=== PATIENT | female | born 1985 | race Caucasian/White ===

== ENCOUNTER 2017-02-18 18:21 | Emergency (ER) ==
[2017-02-18 18:21] VITALS: BMI 21.0
[2017-02-18 18:26] VITALS: BP 137/80; TEMP 99.6
--- NOTE | 2017-02-18 18:39 | ED.PDOC ---
General ED Provider: Dr. MILES PAGE Chief Complaint: Tooth Problem Stated Complaint: dental pain Time Seen by Physician: 18:33 Mode of Arrival: Walk-In Information Source: Patient Exam Limitations: No limitations Primary Care Provider: ANA LAURA CLAYTON Nursing and Triage Documentation Reviewed and Agree: Yes EENT Complaint Exam - Dental/Oral Complaint/Exam Mechanism of Injury: No known trauma Symptoms Are: Still present Initial Severity: Moderate Current Severity: Moderate Character: Reports: Aching, Throbbing Aggravating: Reports: Heat, Cold, Chewing Alleviating: Reports: None Associated Signs and Symptoms: Reports: Swelling (face see photo) Cardiac Risk Factors: Reports: None Dental/Oral Surgical History: Reports: None Tooth Findings: Present: Gross decay, Gross caries Cervical Lymphadenopathy Present: No Facial Swelling Present: Yes (see photo) Bleeding Present: No Oropharynx Findings: Absent: Clots, Active bleeding Septal Hematoma: No Foreign Body Present: No Dysphagia Present: No Drooling Present: No Asymmetrical Tonsillar Swelling Present: No Uvula Midline: Yes Michelle-tonsillar Fluctuence: No Trismus Present: No Palatal Petechiae Present: No Scarlatinaform Rash Present: No Teeth Picture: 1 - decay Differential Diagnoses: Dental Caries Review of Systems - Review Of Systems Constitutional: Reports: No symptoms Eyes: Reports: No symptoms Ears, Nose, Mouth, Throat: Reports: No symptoms Respiratory: Reports: No symptoms Cardiac: Reports: No symptoms GI: Reports: No symptoms : Reports: No symptoms Musculoskeletal: Reports: No symptoms Skin: Reports: No symptoms Neurological: Reports: No symptoms Endocrine: Reports: No symptoms Hematologic/Lymphatic: Reports: No symptoms All Other Systems: Reviewed and Negative Past Medical History - Past Medical History Previously Healthy: Yes Endocrine: Reports: None Cardiovascular: Reports: None Respiratory: Reports: None Hematological: Reports: None Gastrointestinal: Reports: GERD Genitourinary: Reports: None Neuro/Psych: Reports: Anxiety, Bipolar Disorder Musculoskeletal: Reports: Arthritis, Back Pain (Kyphoscoliosis ) Cancer: Reports: None Last Menstrual Period: last week - Surgical History General Surgical History: Reports: Tubal ligation, Cholecystectomy - Family History Family History: Reports: None - Social History Smoking Status: Current every day smoker, Heavy tobacco smoker Hx Substance Use: No Alcohol Screening: None Physical Exam - Physical Exam Appearance: Well-appearing, No pain distress, Well-nourished Eyes: APARNA, EOMI, Conjunctiva clear ENT: Ears normal, Nose normal, Oropharynx normal Respiratory: Airway patent, Breath sounds clear, Breath sounds equal, Respirations nonlabored Cardiovascular: RRR, Pulses normal, No rub, No murmur GI/: Soft, Nontender, No masses, Bowel sounds normal, No Organomegaly Musculoskeletal: Normal strength, ROM intact, No edema, No calf tenderness Skin: Warm, Dry, Normal color Neurological: Sensation intact, Motor intact, Reflexes intact, Cranial nerves intact, Alert, Oriented Psychiatric: Affect appropriate, Mood appropriate Critical Care Note - Critical Care Note Total Time (mins): 0 Course - Course Vital Signs: Temp Pulse Resp BP Pulse Ox 02/18/17 18:22 99.6 F 110 H 16 137/80 97 Departure - Departure Time of Disposition: 18:39 Disposition: HOME SELF-CARE Discharge Problem: Toothache Instructions: Toothache (ED) Condition: Good Pt referred to PMD for follow-up: Yes Additional Instructions: Please call your Family Physician as soon as possible to schedule a follow-up appointment. [place] 10/325 three times a day for 5 days (15 tabs) Keflex 500mg three times a day for 15 days (30 tabs) Allergies/Adverse Reactions: Allergies codeine Adverse Reaction (Verified 08/09/16 21:26) RASH/ITCHY Latex, Natural Rubber Adverse Reaction (Verified 08/09/16 21:26) MILD IRRITATION tramadol Adverse Reaction (Verified 08/09/16 21:26) SEIZURES Home Medications: Ambulatory Orders Diphenhydramine HCl [Benadryl] 50 mg PO ONCE PRN 05/26/16 Diazepam [Valium] 10 mg PO TID #90 07/30/16 Gabapentin [Neurontin] 800 mg PO TID #90 07/30/16 Risperdal 1 mg PO BEDTIME #30 07/30/16 Venlafaxine HCl [Effexor Xr] 75 mg PO BID #60 07/30/16 Hydrocodone/Acetaminophen [[place] 5-325 Tablet] 1 tab PO Q6HR PRN #12 tablet Lamotrigine [Lamictal] 100 mg PO BEDTIME #30 12/17/16
== END 2017-02-18 18:50 | disposition home or self-care (01) ==
LOC: ED 18:21
DX: K08.89 Other specified disorders of teeth and supporting structures (principal); K02.7 Dental root caries; F17.210 Nicotine dependence, cigarettes, uncomplicated; Z79.899 Other long term (current) drug therapy
CPT/HCPCS: 99282

== ENCOUNTER 2017-04-12 14:47 | Emergency (ER) ==
[2017-04-12 14:47] VITALS: BMI 21.0
[2017-04-12 14:53] VITALS: BP 98/61; TEMP 98.1
[2017-04-12] MEDS ORDERED: SOLU-MEDROL 125 MG IM STA (15:08)
[2017-04-12] MEDS ORDERED: BENADRYL IM STA (15:08)
[2017-04-12] MEDS ORDERED: STADOL IM STA (15:08)
--- NOTE | 2017-04-12 15:09 | ED.PDOC ---
General ED Provider: Dr. FITO MINA JR Chief Complaint: Fall Stated Complaint: SLIPPED IN SHOWER AND HIT BACK ON CORNER OF SINK. [ End ] 98.1 104 20 96% 98/61 05/30. FALL, GOES TO PAIN MANAGEMENT. LEFT BACK THORACIC PARASPINOUS Time Seen by Physician: 15:10 Mode of Arrival: Walk-In Information Source: Patient Exam Limitations: No limitations Primary Care Provider: ANA LAURA CLAYTON Nursing and Triage Documentation Reviewed and Agree: No Review of Systems - Review Of Systems Constitutional: Reports: No symptoms Eyes: Reports: No symptoms Ears, Nose, Mouth, Throat: Reports: No symptoms Respiratory: Reports: No symptoms Cardiac: Reports: No symptoms GI: Reports: No symptoms : Reports: No symptoms Musculoskeletal: Reports: Back pain (LEFT FLANK ABTRASIONS TENDER BY HISTORY DEEP BRUISE PER PATIENT- TENDERNESS MOST OVER LEFT POSTLAT 10TH RIB- SIMPLE CONTUSION NO RIB TENDERNESS TO DISTRACTION) Skin: Reports: Lesions Neurological: Reports: No symptoms Endocrine: Reports: No symptoms Hematologic/Lymphatic: Reports: No symptoms All Other Systems: Other Past Medical History - Past Medical History Previously Healthy: Yes Endocrine: Reports: None Cardiovascular: Reports: None Respiratory: Reports: None Hematological: Reports: None Gastrointestinal: Reports: GERD Genitourinary: Reports: None Neuro/Psych: Reports: Anxiety, Bipolar Disorder Musculoskeletal: Reports: Arthritis, Back Pain (Kyphoscoliosis ) Cancer: Reports: None Last Menstrual Period: 1 WEEK AGO - Surgical History General Surgical History: Reports: Tubal ligation, Cholecystectomy - Family History Family History: Reports: None - Social History Smoking Status: Current every day smoker, Heavy tobacco smoker Hx Substance Use: No Alcohol Screening: None Physical Exam - Physical Exam Appearance: Well-appearing, Thin Pain Distress: Moderate Eyes: APARNA, EOMI, Conjunctiva clear ENT: Ears normal, Nose normal, Oropharynx normal Neck: Supple Respiratory: Airway patent, Breath sounds clear, Breath sounds equal, Respirations nonlabored Cardiovascular: RRR, Pulses normal, No rub, No murmur GI/: Soft, Nontender, No masses, Bowel sounds normal, No Organomegaly Musculoskeletal: Normal strength, ROM intact, No edema, No calf tenderness Skin: Warm, Dry, Normal color (ERYTHEMA CONSISTENT WITH HISTORY NO EDEMA NO TENDERNESS NO BONY TENDERNESS) Neurological: Sensation intact, Motor intact, Reflexes intact, Cranial nerves intact, Alert, Oriented Psychiatric: Affect appropriate, Mood appropriate Critical Care Note - Critical Care Note Total Time (mins): 0 Course - Course Orders, Labs, Meds: Lab Review 04/12/17 16:30 Urine Color Yellow Urine Clarity Clear Urine pH 6.0 Ur Specific [place] <=1.005 Urine Protein Negative Urine Glucose (UA) Negative Urine Ketones Negative Urine Blood Negative Urine Nitrite Negative Urine Bilirubin Negative Urine Urobilinogen 0.2 Ur Leukocyte Esterase Negative Orders Category Date Time Status UA [URINALYSIS C & S IF INDICATED] Stat LAB 04/12/17 16:30 Completed Butorphanol Tartrate [Stadol] MEDS 04/12/17 15:08 Discontinued 2 mg IM ONCE STA Diphenhydramine Inj [Benadryl] MEDS 04/12/17 15:08 Discontinued 25 mg IM ONCE STA Methylprednisolone Sod Succ/Pf [Solu-Medrol 125 mg] MEDS 04/12/17 15:08 Discontinued 125 mg IM ONCE STA Medications Discontinued Medications Generic Name Dose Route Start Last Admin Trade Name Freq PRN Reason Stop Dose Admin Butorphanol Tartrate 2 mg 04/12/17 15:08 04/12/17 15:48 Stadol IM 04/12/17 15:09 2 mg ONCE STA Administration Diphenhydramine HCl 25 mg 04/12/17 15:08 04/12/17 15:46 Benadryl IM 04/12/17 15:09 25 mg ONCE STA Administration Methylprednisolone Sodium Succinate 125 mg 04/12/17 15:08 04/12/17 15:44 Solu-Medrol 125 Mg IM 04/12/17 15:09 125 mg ONCE STA Administration Vital Signs: Temp Pulse Resp BP Pulse Ox 04/12/17 14:47 98.1 F 104 H 20 98/61 96 Departure - Departure Time of Disposition: 17:03 Disposition: HOME SELF-CARE Discharge Problem: Falls Contusion Qualifiers: Encounter type: initial encounter Contusion area: thoracic wall Contusion of thoracic wall detail: back wall of thorax Laterality: left Qualifier Code: ( S20.222A) Contusion of left back wall of thorax, initial encounter Instructions: Contusion in Adults (ED) Condition: Good Pt referred to PMD for follow-up: Yes Additional Instructions: ice 20 minutes three times a day return if blood in urine(urine is normal without blood in ER) light exercise may use Tylenol for pain Benadryl for itching return if new symptoms may use [place] if OK with PMD Prescriptions: Hydrocodone Bit/Acetaminophen [[place] 5-325] 1 - 2 tab PO Q6HR PRN #12 tablet PRN Reason: pain Allergies/Adverse Reactions: Allergies codeine Adverse Reaction (Verified 04/12/17 14:54) RASH/ITCHY hydrocodone Adverse Reaction (Verified 04/12/17 14:54) Latex, Natural Rubber Adverse Reaction (Verified 04/12/17 14:54) MILD IRRITATION tramadol Adverse Reaction (Verified 04/12/17 14:54) SEIZURES Home Medications: Ambulatory Orders Diphenhydramine HCl [Benadryl] 50 mg PO ONCE PRN 05/26/16 Hydrocodone Bit/Acetaminophen [[place] 5-325] 1 - 2 tab PO Q6HR PRN #12 tablet
[2017-04-12 16:42] LABS: BILIRUBIN,URINE Negative (NEGATIVE); KETONES,URINE Negative (NEGATIVE); LEUKOCYTE ESTERASE ,URINE Negative (NEGATIVE); NITRITE,URINE Negative (NEGATIVE); PROTEIN,URINE Negative (NEGATIVE); URINE, BLOOD Negative (NEGATIVE)
[2017-04-12 16:46] LABS: ADD URINE MICROSCOPIC NO
[2017-04-12] MEDS ORDERED: NORCO 5-325 PO STA (17:05)
== END 2017-04-12 17:44 | disposition home or self-care (01) ==
LOC: ED 14:47
DX: S20.222A Contusion of left back wall of thorax, initial encounter (principal); W19.XXXA Unspecified fall, initial encounter; F17.210 Nicotine dependence, cigarettes, uncomplicated
CPT/HCPCS: 81001; 96372; 99283

== ENCOUNTER 2017-10-04 21:25 | Emergency (ER) ==
[2017-10-04 21:36] VITALS: BP 130/81; TEMP 98.6; BMI 19.7
[2017-10-04] MEDS ORDERED: AUGMENTIN 500-125 MG TAB PO STA (21:45)
[2017-10-04] MEDS ORDERED: PERCOCET 5-325 PO STA (21:45)
--- NOTE | 2017-10-04 21:48 | ED.PDOC ---
General ED Provider: Dr. MATTHIEU HEALY Chief Complaint: Tooth Problem Stated Complaint: Been hurting in the right lower teeth, it has caries, gum swollen. Time Seen by Physician: 21:46 Mode of Arrival: Walk-In Information Source: Patient Primary Care Provider: ANA LAURA CLAYTON Nursing and Triage Documentation Reviewed and Agree: Yes Reviewed sepsis parameters & appropriate labs ordered?: Yes System Inflammatory Response Syndrome: Not Applicable Sepsis Protocol: For patient's 13 years and over: Temp is 96.8 and below OR 101 and greater Pulse >90 BPM Resp >20/minute Acutely Altered Mental Status Are patient's symptoms suggestive of a new infection, such as: -Pneumonia -Skin, Soft Tissue -Endocarditis -UTI -Bone, Joint Infection -Implantable Device -Acute Abdominal Infection -Wound Infection -Meningitis -Blood Stream Catheter Infection -Unknown EENT Complaint Exam - Dental/Oral Complaint/Exam Mechanism of Injury: No known trauma Symptoms Are: Still present Timing: Constant Initial Severity: Moderate Current Severity: Moderate Character: Reports: Aching Aggravating: Reports: None Alleviating: Reports: None Associated Signs and Symptoms: Reports: Swelling, Foul odor, Foul taste in mouth. Denies: Discharge, Fever Related History: Reports: Similar episode Cardiac Risk Factors: Reports: None Dental/Oral Surgical History: Reports: None Tooth Findings: Present: Gross decay, Gross caries, Cellulitis Cervical Lymphadenopathy Present: Yes Facial Swelling Present: No Bleeding Present: No Septal Hematoma: No Foreign Body Present: No Dysphagia Present: No Drooling Present: No Asymmetrical Tonsillar Swelling Present: No Uvula Midline: No Michelle-tonsillar Fluctuence: No Trismus Present: No Palatal Petechiae Present: No Scarlatinaform Rash Present: No Teeth Picture: 1 - caries, swollen gums Differential Diagnoses: Dental Abcess, Dental Caries Review of Systems - Review Of Systems Constitutional: Reports: No symptoms Eyes: Reports: No symptoms Ears, Nose, Mouth, Throat: Reports: Mouth pain Respiratory: Reports: No symptoms Cardiac: Reports: No symptoms GI: Reports: No symptoms : Reports: No symptoms Musculoskeletal: Reports: No symptoms Skin: Reports: No symptoms Neurological: Reports: No symptoms Endocrine: Reports: No symptoms Hematologic/Lymphatic: Reports: No symptoms All Other Systems: Reviewed and Negative Past Medical History - Past Medical History Previously Healthy: Yes Endocrine: Reports: None Cardiovascular: Reports: None Respiratory: Reports: None Hematological: Reports: None Gastrointestinal: Reports: GERD Genitourinary: Reports: None Neuro/Psych: Reports: Anxiety, Bipolar Disorder Musculoskeletal: Reports: Arthritis, Back Pain (Kyphoscoliosis ) Cancer: Reports: None Last Menstrual Period: 1 week ago - Surgical History General Surgical History: Reports: Tubal ligation, Cholecystectomy - Family History Family History: Reports: None - Social History Smoking Status: Current every day smoker, Heavy tobacco smoker Smoking Cessation Counseling Time: > 10 min Hx Substance Use: No Alcohol Screening: None - Immunizations Tetanus Shot up to Date: No (unsure) Physical Exam - Physical Exam Appearance: Well-appearing, No pain distress, Well-nourished Eyes: APARNA, EOMI, Conjunctiva clear ENT: Ears normal, Nose normal, Oropharynx normal Respiratory: Airway patent, Breath sounds clear, Breath sounds equal, Respirations nonlabored Cardiovascular: RRR, Pulses normal, No rub, No murmur GI/: Soft, Nontender, No masses, Bowel sounds normal, No Organomegaly Musculoskeletal: Normal strength, ROM intact, No edema, No calf tenderness Skin: Warm, Dry, Normal color Neurological: Sensation intact, Motor intact, Reflexes intact, Cranial nerves intact, Alert, Oriented Psychiatric: Affect appropriate, Mood appropriate Critical Care Note - Critical Care Note Total Time (mins): 10 Course - Course Orders, Labs, Meds: Orders Category Date Time Status Amoxicillin/Potassium Clav [Augmentin 500-125 mg Tab] MEDS 10/04/17 21:45 Stat 1 tab PO ONCE STA Oxycodone-Acetaminophen 5-325 [Percocet 5-325] MEDS 10/04/17 21:45 Stat 1 tab PO ONCE STA Vital Signs: Temp Pulse Resp BP Pulse Ox 10/04/17 21:27 98.6 F 104 H 20 130/81 96 Departure - Departure Time of Disposition: 21:49 Disposition: HOME SELF-CARE Discharge Problem: Toothache Instructions: Dental Caries (GEN) Condition: Good Pt referred to PMD for follow-up: Yes IPMP verified?: No Additional Instructions: dental hygiene f/u with Dentist Prescriptions: Amoxicillin/Potassium Clav [Augmentin 500-125 mg Tab] 1 tab PO Q12HR #20 tablet Allergies/Adverse Reactions: Allergies codeine Adverse Reaction (Verified 04/12/17 14:54) RASH/ITCHY hydrocodone Adverse Reaction (Verified 10/04/17 21:39) Itching QUESTIONED PT ABOUT HAVING HYDROCODONE LISTED AN ALLERGY AND PT TAKES NORCO 5-325MG FROM PAIN MANAGEMENT. PT. SAYS SHE TAKES BENADRYL BEFORE TAKING THE NORCO AND IS WANTING DRDaniel TO CHANGE PAIN MED. wm Latex, Natural Rubber Adverse Reaction (Verified 04/12/17 14:54) MILD IRRITATION tramadol Adverse Reaction (Verified 04/12/17 14:54) SEIZURES Home Medications: Ambulatory Orders Diphenhydramine HCl [Benadryl] 50 mg PO ONCE PRN 05/26/16 Amoxicillin/Potassium Clav [Augmentin 500-125 mg Tab] 1 tab PO Q12HR #20 tablet 10/04/17 Hydrocodone Bit/Acetaminophen [[place] 5-325] 1 - 2 tab PO BID 10/04/17 Disposition Discussed With: Patient, Family
== END 2017-10-04 22:08 | disposition home or self-care (01) ==
LOC: ED 21:25
DX: K08.89 Other specified disorders of teeth and supporting structures (principal); K02.7 Dental root caries
CPT/HCPCS: 99282

== ENCOUNTER 2017-12-04 07:20 | Outpatient (CLI) | payer OTHER | END 2017-12-04 07:21 | disposition short-term general hospital (02) | LOC: AMBL 07:20 | PROVIDERS: ATTEND Emergency Medicine | DX: T22.00XA Burn of unspecified degree of shoulder and upper limb, except wrist and hand, unspecified site, initial encounter (principal); T20.00XA Burn of unspecified degree of head, face, and neck, unspecified site, initial encounter; T20.02XA Burn of unspecified degree of lip(s), initial encounter; T28.0XXA Burn of mouth and pharynx, initial encounter; T79.9XXA Unspecified early complication of trauma, initial encounter; R40.20 Unspecified coma; X08.8XXA Exposure to other specified smoke, fire and flames, initial encounter ==

== ENCOUNTER 2018-01-15 15:40 | Emergency (ER) | payer OTHER ==
[2018-01-15 15:45] VITALS: BP 124/84; TEMP 97.8; BMI 20.2
[2018-01-15] MEDS ORDERED: NORCO 5-325 PO STA (18:36)
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
== END 2018-01-15 19:10 | disposition home or self-care (01) ==
LOC: ED 15:40
DX: H10.9 Unspecified conjunctivitis (principal); F17.210 Nicotine dependence, cigarettes, uncomplicated
CPT/HCPCS: 87070; 99283

== ENCOUNTER 2018-01-31 18:08 | Emergency (ER) ==
[2018-01-31 18:25] VITALS: BP 116/88; TEMP 99.2; BMI 19.5
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
== END 2018-01-31 20:35 | disposition home or self-care (01) ==
LOC: ED 18:08
DX: Z76.0 Encounter for issue of repeat prescription (principal); T22.00XD Burn of unspecified degree of shoulder and upper limb, except wrist and hand, unspecified site, subsequent encounter; X08.8XXD Exposure to other specified smoke, fire and flames, subsequent encounter
CPT/HCPCS: 99283

== ENCOUNTER 2018-02-15 18:06 | Inpatient (IN) ==
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
[2018-02-15] MEDS ORDERED: VANCOMYCIN 1 GM in SODIUM CHLORIDE 250 ML IV STA (18:34)
[2018-02-15] MEDS ORDERED: ROCEPHIN 1 GM in SODIUM CHLORIDE 50 ML IV STA (18:34)
[2018-02-15] MEDS ORDERED: NORCO 10-325 PO PRN (18:35)
[2018-02-15] MEDS ORDERED: OXYCODONE PO PRN (18:38)
[2018-02-15] MEDS ORDERED: ROCEPHIN ONE (18:49)
[2018-02-15] MEDS: SODIUM CHLORIDE 1,000 ML IV SCH (21:40)
[2018-02-15 21:47] VITALS: BMI 19.9
[2018-02-15] MEDS ORDERED: LAMOTRIGINE 100 MG PO SCH (23:45)
[2018-02-15] MEDS ORDERED: NON-FORMULARY MEDICATION (Gabapentin [Neurontin] 800 MG) PO SCH (23:45)
[2018-02-15] MEDS ORDERED: RISPERDAL 1 MG PO SCH (23:45)
[2018-02-15] MEDS ORDERED: NON-FORMULARY MEDICATION (Diazepam [Valium] 10 MG) PO SCH (23:49)
[2018-02-16] MEDS ORDERED: VALIUM ONE (00:45)
[2018-02-16] MEDS ORDERED: NEURONTIN ONE ×2 (00:45)
[2018-02-16] MEDS ORDERED: RISPERDAL ONE (00:46)
[2018-02-16] MEDS ORDERED: NEO-POLYCIN OPTH OINT OP SCH (01:00)
[2018-02-16] MEDS: BENADRYL PO PRN ×2 (01:05→19:03)
[2018-02-16] MEDS: OXYCODONE PO PRN ×5 (01:09→23:48)
[2018-02-16] MEDS ORDERED: BACITRACIN TP SCH (01:40)
[2018-02-16] MEDS: EFFEXOR XR PO SCH ×3 (01:57→20:43)
[2018-02-16] MEDS ORDERED: VANCOMYCIN 1 GM in SODIUM CHLORIDE 250 ML IV SCH (09:00)
[2018-02-16] MEDS: VANCOMYCIN 1 GM in SODIUM CHLORIDE 250 ML IV SCH ×2 (09:48→20:43)
[2018-02-16] MEDS: NEURONTIN PO SCH ×6 (09:48→20:45)
[2018-02-16] MEDS: VALIUM PO SCH ×3 (09:49→20:46)
[2018-02-16] MEDS: ROCEPHIN 1 GM in SODIUM CHLORIDE 50 ML IV SCH (13:05)
[2018-02-16] MEDS: SODIUM CHLORIDE 1,000 ML IV SCH (19:03)
[2018-02-16] MEDS ORDERED: PERCOCET 10-325 PO STA (19:16)
[2018-02-16] MEDS: BACITRACIN TP SCH (20:42)
[2018-02-16] MEDS: LAMICTAL PO SCH (20:43)
[2018-02-16] MEDS: RISPERDAL PO SCH (20:45)
[2018-02-17] MEDS: OXYCODONE PO PRN ×4 (04:53→18:13)
[2018-02-17] MEDS: EFFEXOR XR PO SCH ×2 (08:47→21:00)
[2018-02-17] MEDS: VANCOMYCIN 1 GM in SODIUM CHLORIDE 250 ML IV SCH ×2 (08:47→20:59)
[2018-02-17] MEDS: VALIUM PO SCH ×3 (08:47→21:00)
[2018-02-17] MEDS: NEURONTIN PO SCH ×6 (08:47→21:01)
[2018-02-17] MEDS: BENADRYL PO PRN (08:54)
[2018-02-17] MEDS: ROCEPHIN 1 GM in SODIUM CHLORIDE 50 ML IV SCH (10:18)
[2018-02-17] MEDS: LAMICTAL PO SCH (20:59)
[2018-02-17] MEDS: BACITRACIN TP SCH (20:59)
[2018-02-17] MEDS ORDERED: BACITRACIN TP SCH (21:00)
[2018-02-17] MEDS: RISPERDAL PO SCH (21:00)
[2018-02-17] MEDS: SODIUM CHLORIDE 1,000 ML IV SCH (21:00)
[2018-02-18] MEDS: OXYCODONE PO PRN ×7 (01:08→21:12)
[2018-02-18] MEDS: EFFEXOR XR PO SCH ×2 (08:50→20:45)
[2018-02-18] MEDS: NEURONTIN PO SCH ×6 (08:51→20:44)
[2018-02-18] MEDS: VALIUM PO SCH ×3 (08:52→20:43)
[2018-02-18] MEDS: BENADRYL PO PRN ×2 (09:03→17:38)
[2018-02-18] MEDS: ROCEPHIN 1 GM in SODIUM CHLORIDE 50 ML IV SCH (09:16)
[2018-02-18] MEDS: VANCOMYCIN 1 GM in SODIUM CHLORIDE 250 ML IV SCH ×2 (09:39→20:46)
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
[2018-02-18] MEDS: RISPERDAL PO SCH (20:45)
[2018-02-18] MEDS: LAMICTAL PO SCH (20:46)
[2018-02-18] MEDS: BACITRACIN TP SCH (20:46)
[2018-02-18] MEDS: SODIUM CHLORIDE 1,000 ML IV SCH (22:41)
[2018-02-19] MEDS: OXYCODONE PO PRN ×5 (03:31→20:33)
[2018-02-19] MEDS: EFFEXOR XR PO SCH ×2 (08:12→20:34)
[2018-02-19] MEDS: NEURONTIN PO SCH ×6 (08:12→20:32)
[2018-02-19] MEDS: VALIUM PO SCH ×3 (08:12→20:34)
[2018-02-19] MEDS: ROCEPHIN 1 GM in SODIUM CHLORIDE 50 ML IV SCH (08:13)
[2018-02-19] MEDS: VANCOMYCIN 1 GM in SODIUM CHLORIDE 250 ML IV SCH ×2 (09:01→21:55)
[2018-02-19] MEDS: BENADRYL PO PRN (10:25)
[2018-02-19] MEDS: SODIUM CHLORIDE 1,000 ML IV SCH ×2 (15:21→15:22)
[2018-02-19] MEDS: LAMICTAL PO SCH (20:32)
[2018-02-19] MEDS: RISPERDAL PO SCH (20:35)
[2018-02-19] MEDS: BACITRACIN TP SCH (20:35)
[2018-02-20] MEDS: OXYCODONE PO PRN ×5 (00:38→16:53)
[2018-02-20] MEDS: BENADRYL PO PRN (07:17)
[2018-02-20] MEDS: EFFEXOR XR PO SCH (08:45)
[2018-02-20] MEDS: VANCOMYCIN 1 GM in SODIUM CHLORIDE 250 ML IV SCH (08:45)
[2018-02-20] MEDS: NEURONTIN PO SCH ×4 (08:46→16:08)
[2018-02-20] MEDS: VALIUM PO SCH ×2 (08:46→16:08)
[2018-02-20] MEDS: ROCEPHIN 1 GM in SODIUM CHLORIDE 50 ML IV SCH (10:58)
[2018-02-20] MEDS ORDERED: OXYCODONE PO STA (15:14)
[2018-02-20 17:48] VITALS: BP 104/64; TEMP 98.1
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
--- NOTE | 2018-02-21 16:16 | RS.OTQKDC ---
OT Discharge Date of Discharge: 02/20/18 Number of Visits: 2 Reason for Discharge: Pt discharged to home.
== END 2018-02-20 19:35 | disposition home or self-care (01) | DRG 603 ==
LOC: ED 18:06 → MEDSURG B 18:36
PROVIDERS: ADMIT Emergency Medicine; ATTEND Emergency Medicine
DX: L03.114 Cellulitis of left upper limb (principal); L03.113 Cellulitis of right upper limb; T22.09 Burn of unspecified degree of multiple sites of shoulder and upper limb, except wrist and hand; T20.0 Burn of unspecified degree of head, face, and neck; T20.05 Burn of unspecified degree of scalp [any part]; X00 Exposure to uncontrolled fire in building or structure; B95.62 Methicillin resistant Staphylococcus aureus infection as the cause of diseases classified elsewhere; G40.909 Epilepsy, unspecified, not intractable, without status epilepticus; G43.909 Migraine, unspecified, not intractable, without status migrainosus; I10 Essential (primary) hypertension; K21.9 Gastro-esophageal reflux disease without esophagitis; M41.9 Scoliosis, unspecified; M54.30 Sciatica, unspecified side; M19.90 Unspecified osteoarthritis, unspecified site; F43.10 Post-traumatic stress disorder, unspecified; F31.9 Bipolar disorder, unspecified; F41.9 Anxiety disorder, unspecified; F32.9 Major depressive disorder, single episode, unspecified; Z16.11 Resistance to penicillins; Z79.899 Other long term (current) drug therapy
CPT/HCPCS: 36415; 80053; 80202; 85025; 87040; 87070; 87186; 96365; 99284

== ENCOUNTER 2018-03-13 16:19 | Emergency (ER) ==
[2018-03-13 16:29] VITALS: BP 120/87; TEMP 98.7; BMI 20.2
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
[2018-03-13] MEDS ORDERED: OXYCONTIN PO STA (16:54)
== END 2018-03-13 17:17 | disposition home or self-care (01) ==
LOC: ED 16:19
DX: M25.521 Pain in right elbow (principal)
CPT/HCPCS: 99282

== ENCOUNTER 2018-03-26 17:39 | Emergency (ER) ==
[2018-03-26 17:44] VITALS: BP 115/71; TEMP 97.9; BMI 20.1
[2018-03-26] MEDS ORDERED: ZOFRAN 4 MG/2 ML IM STA (19:43)
[2018-03-26] MEDS ORDERED: BACTRIM DS 800/160 MG PO STA (19:43)
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
[2018-03-26] MEDS ORDERED: NORCO 7.5-325 PO STA (20:11)
== END 2018-03-26 20:28 | disposition home or self-care (01) ==
LOC: ED 17:39
DX: L03.113 Cellulitis of right upper limb (principal); T22.021A Burn of unspecified degree of right elbow, initial encounter
CPT/HCPCS: 96372; 99283; 99284

== ENCOUNTER 2018-05-17 17:48 | Emergency (ER) ==
[2018-05-17 17:53] VITALS: BP 109/72; TEMP 97.9; BMI 21.3
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
[2018-05-17] MEDS ORDERED: PERCOCET 7.5-325 PO STA (18:48)
[2018-05-17] MEDS ORDERED: NORCO 7.5-325 PO STA (18:51)
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
[2018-05-17] MEDS ORDERED: DILAUDID 0.5 MG/0.5 ML SYRINGE IM STA (20:10)
== END 2018-05-17 20:28 | disposition home or self-care (01) ==
LOC: ED 17:48
DX: K08.89 Other specified disorders of teeth and supporting structures (principal); K02.7 Dental root caries; S02.5XXA Fracture of tooth (traumatic), initial encounter for closed fracture; F17.210 Nicotine dependence, cigarettes, uncomplicated
CPT/HCPCS: 96372; 99283

== ENCOUNTER 2018-07-11 23:00 | Emergency (ER) ==
[2018-07-11 23:16] VITALS: BP 103/73; TEMP 96.9; BMI 22.2
[2018-07-11] MEDS ORDERED: DILAUDID 1 MG/ML SYRINGE IM STA (23:37)
[2018-07-11] MEDS ORDERED: PHENERGAN 25 MG/ML VIAL IM STA (23:37)
--- NOTE | 2018-07-12 01:00 | CT ---
EXAM: CT scan brain without contrast HISTORY: Dizziness COMPARISON: CT scan brain 09/07/2016 FINDINGS: Contiguous axial images obtained from the skull base to the convexities without contrast u tilizing 5-mm collimation. Sagittal and coronal reconstructions were imaged and reviewed.. The vent ricles and CSF spaces are within normal limits. There are no acute intracranial findings. The visua lized paranasal sinuses and mastoid air cells are clear. IMPRESSION: No acute intracranial findings.
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
== END 2018-07-12 01:20 | disposition home or self-care (01) ==
LOC: ED 23:00
DX: M79.602 Pain in left arm (principal); M79.601 Pain in right arm; T22.00XS Burn of unspecified degree of shoulder and upper limb, except wrist and hand, unspecified site, sequela; R94.5 Abnormal results of liver function studies; F17.210 Nicotine dependence, cigarettes, uncomplicated
CPT/HCPCS: 36415; 80053; 82550; 84484; 84703; 85025; 93005; 93010; 96372; 99283

== ENCOUNTER 2018-07-13 16:22 | Emergency (ER) ==
[2018-07-13 16:30] VITALS: BP 118/64; TEMP 98.1; BMI 23.1
--- NOTE | 2018-07-13 17:23 | ED.PDOC ---
General ED Provider: Dr. MILES PAGE Chief Complaint: Headache Stated Complaint: chronic headache Time Seen by Physician: 16:30 (pedro present all times ) Mode of Arrival: Walk-In Information Source: Patient Exam Limitations: No limitations Primary Care Provider: LY FELICIANO Nursing and Triage Documentation Reviewed and Agree: Yes Does patient meet sepsis criteria?: No System Inflammatory Response Syndrome: Not Applicable Sepsis Protocol: For patient's 13 years and over: Temp is 96.8 and below OR 101 and greater Pulse >90 BPM Resp >20/minute Acutely Altered Mental Status Are patient's symptoms suggestive of a new infection, such as: -Pneumonia -Skin, Soft Tissue -Endocarditis -UTI -Bone, Joint Infection -Implantable Device -Acute Abdominal Infection -Wound Infection -Meningitis -Blood Stream Catheter Infection -Unknown Neurological Complaint Exam - Headache Complaint/Exam Onset: Gradual Duration: 1630 Symptoms Are: Still present Timing: Intermittent Episodes Lasting: Hours Worst Headache Ever: No Initial Severity: Moderate Current Severity: Moderate Location: Diffuse Character: Reports: Dull Aggravating: Reports: None Alleviating: Reports: None Associated Signs and Symptoms: Denies: Dizziness, Seizure, Nausea, Vomiting, Sinus pressure, Fever, Neck pain, Neck stiffness, Decreased LOC, Visual changes Related History: Reports: Similar episode Related Surgical History: Reports: None SAH Risk Factors: Reports: None SDH Risk Factors: Reports: None Temporal Arteritis Risk Factors: Reports: Female, Normal Head CT Within Last 12 Months: No Fundoscopic Exam: Present: Normal Findings Papilledema Present: No Temporal Artery Tenderness: Present: None Sinus Tenderness: Present: None TMJ Tenderness: Present: None Glascow Coma Scale (see protocol): 15 Meningeal Signs Positive: No ROM Limited In: No Limitiations Focal Weakness: Present: None Focal Sensory Loss: Present: None Gait: Normal Nystagmus Present: No Gag Reflex Present: Yes [id number]: Normal Findings Romberg Test Positive: No Babinski Sign: Negative Right, Negative Left Differential Diagnoses: Migraine Review of Systems - Review Of Systems Constitutional: Reports: No symptoms Eyes: Reports: No symptoms Ears, Nose, Mouth, Throat: Reports: No symptoms Respiratory: Reports: No symptoms Cardiac: Reports: No symptoms GI: Reports: No symptoms : Reports: No symptoms Musculoskeletal: Reports: No symptoms Skin: Reports: No symptoms Neurological: Reports: No symptoms Endocrine: Reports: No symptoms Hematologic/Lymphatic: Reports: No symptoms All Other Systems: Reviewed and Negative Past Medical History - Past Medical History Previously Healthy: Yes Endocrine: Reports: None Cardiovascular: Reports: None Respiratory: Reports: None Hematological: Reports: None Gastrointestinal: Reports: GERD Genitourinary: Reports: None Neuro/Psych: Reports: Anxiety, Bipolar Disorder Musculoskeletal: Reports: Arthritis, Back Pain (Kyphoscoliosis ) Cancer: Reports: None Last Menstrual Period: not sure - Surgical History General Surgical History: Reports: Tubal ligation, Cholecystectomy - Family History Family History: Reports: None - Social History Smoking Status: Current every day smoker, Light tobacco smoker Hx Substance Use: No Alcohol Screening: None Physical Exam - Physical Exam Appearance: Well-appearing, No pain distress, Well-nourished Eyes: APARNA, EOMI, Conjunctiva clear ENT: Ears normal, Nose normal, Oropharynx normal Respiratory: Airway patent, Breath sounds clear, Breath sounds equal, Respirations nonlabored Cardiovascular: RRR, Pulses normal, No rub, No murmur GI/: Soft, Nontender, No masses, Bowel sounds normal, No Organomegaly Musculoskeletal: Normal strength, ROM intact, No edema, No calf tenderness Skin: Warm, Dry, Normal color Neurological: Sensation intact, Motor intact, Reflexes intact, Cranial nerves intact, Alert, Oriented Psychiatric: Affect appropriate, Mood appropriate Critical Care Note - Critical Care Note Total Time (mins): 0 Course - Course Vital Signs: Temp Pulse Resp BP Pulse Ox 07/13/18 16:23 98.1 F 87 20 118/64 98 Departure - Departure Time of Disposition: 17:23 Disposition: HOME SELF-CARE Discharge Problem: Headache Instructions: Acute Headache (ED) Condition: Good Pt referred to PMD for follow-up: Yes IPMP verified?: No Additional Instructions: Please call your Family Physician as soon as possible to schedule a follow-up appointment. Allergies/Adverse Reactions: Allergies tramadol Adverse Reaction (Verified 07/13/18 16:32) seizures Home Medications: Ambulatory Orders Bacitracin 1 applic TP BEDTIME 02/16/18 Ondansetron HCl [Zofran] 4 mg PO PRN 04/19/18 Oxycodone HCl 5 mg PO TID 04/19/18 Diphenhydramine HCl [Benadryl] 50 mg PO DIRECTED PRN 05/17/18
== END 2018-07-13 17:33 | disposition home or self-care (01) ==
LOC: ED 16:22
DX: R51 Headache (principal); F17.210 Nicotine dependence, cigarettes, uncomplicated
CPT/HCPCS: 99282

== ENCOUNTER 2018-08-06 23:42 | Emergency (ER) ==
[2018-08-06 23:55] VITALS: BP 123/84; TEMP 99.3; BMI 22.8
[2018-08-07] MEDS ORDERED: TORADOL IM STA (00:02)
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
== END 2018-08-07 00:50 | disposition home or self-care (01) ==
LOC: ED 23:42
DX: G62.9 Polyneuropathy, unspecified (principal); T22.00XS Burn of unspecified degree of shoulder and upper limb, except wrist and hand, unspecified site, sequela; F17.210 Nicotine dependence, cigarettes, uncomplicated
CPT/HCPCS: 99282

== ENCOUNTER 2018-08-07 14:43 | Emergency (ER) ==
[2018-08-07 14:54] VITALS: BP 112/78; TEMP 100; BMI 22.6
[2018-08-07] MEDS ORDERED: DILAUDID 1 MG/ML SYRINGE IM STA (15:01)
--- NOTE | 2018-08-07 15:04 | ED.PDOC ---
General ED Provider: Dr. GARY CAPUTO-ER Chief Complaint: Extremity Pain/Injury Stated Complaint: my neuropathy is acting up Time Seen by Physician: 15:02 Mode of Arrival: Walk-In Information Source: Patient Exam Limitations: No limitations Primary Care Provider: LY FELICIANO Nursing and Triage Documentation Reviewed and Agree: Yes Does patient meet sepsis criteria?: No System Inflammatory Response Syndrome: Not Applicable Sepsis Protocol: For patient's 13 years and over: Temp is 96.8 and below OR 101 and greater Pulse >90 BPM Resp >20/minute Acutely Altered Mental Status Are patient's symptoms suggestive of a new infection, such as: -Pneumonia -Skin, Soft Tissue -Endocarditis -UTI -Bone, Joint Infection -Implantable Device -Acute Abdominal Infection -Wound Infection -Meningitis -Blood Stream Catheter Infection -Unknown Musculoskeletal Complaint Exam - Upper Extremity Complaint/Exam Location of Pain: Reports: Right, Left, Arm Mechanism of Injury: Reports: No known trauma Onset/Duration: several weeks Symptoms Are: Still present Timing: Constant Initial Severity: Mild Current Severity: Moderate Location: Reports: Discrete Character: Reports: Burning Aggravating: Reports: Movement, Lifting, Flexion, Extension, Internal rotation, External rotation Related History: Reports: Similar episode Upper Extremity Findings: Absent: Swelling, Ecchymosis, Abnormal contour, Rotation, Ligamentous instability, Laceration, Erythema, Warmth, Blisters, Other joint pain, Foreign body, Tenderness, Limited range of motion NV Bundle Intact Distal to Injury: Yes Compartment Syndrome Risk Factors: Present: Pain Differential Diagnoses: Other Review of Systems - Review Of Systems Constitutional: Reports: No symptoms Eyes: Reports: No symptoms Ears, Nose, Mouth, Throat: Reports: No symptoms Respiratory: Reports: No symptoms Cardiac: Reports: No symptoms GI: Reports: No symptoms : Reports: No symptoms Musculoskeletal: Reports: No symptoms Skin: Reports: No symptoms Neurological: Reports: No symptoms Endocrine: Reports: No symptoms Hematologic/Lymphatic: Reports: No symptoms All Other Systems: Reviewed and Negative Past Medical History - Past Medical History Previously Healthy: Yes Endocrine: Reports: None Cardiovascular: Reports: None Respiratory: Reports: None Hematological: Reports: None Gastrointestinal: Reports: GERD Genitourinary: Reports: None Neuro/Psych: Reports: Anxiety, Bipolar Disorder Musculoskeletal: Reports: Arthritis, Back Pain (Kyphoscoliosis ) Cancer: Reports: None Last Menstrual Period: 3 weeks - Surgical History General Surgical History: Reports: Tubal ligation, Cholecystectomy - Family History Family History: Reports: None - Social History Smoking Status: Current every day smoker, Light tobacco smoker Hx Substance Use: No Alcohol Screening: None Physical Exam - Physical Exam Appearance: Well-appearing, No pain distress, Well-nourished Eyes: APARNA, EOMI, Conjunctiva clear ENT: Ears normal, Nose normal, Oropharynx normal Neck: Supple Respiratory: Airway patent, Breath sounds clear, Breath sounds equal, Respirations nonlabored Cardiovascular: RRR, Pulses normal, No rub, No murmur GI/: Soft Musculoskeletal: Normal strength, ROM intact, No edema, No calf tenderness Skin: Warm, Dry, Normal color Neurological: Sensation intact, Motor intact, Reflexes intact, Cranial nerves intact, Alert, Oriented Psychiatric: Affect appropriate, Mood appropriate Critical Care Note - Critical Care Note Total Time (mins): 0 Course - Course Orders, Labs, Meds: Orders Category Date Time Status Hydromorphone HCl [Dilaudid 1 mg/ml Syringe] MEDS 08/07/18 15:01 Stat 1 mg IM ONCE STA Medications Generic Name Dose Route Start Last Admin Trade Name Freq PRN Reason Stop Dose Admin Hydromorphone HCl 1 mg 08/07/18 15:01 Dilaudid 1 Mg/Ml Syringe IM 08/07/18 15:02 ONCE STA Vital Signs: Temp Pulse Resp BP Pulse Ox 08/07/18 14:48 100.0 F H 135 H 20 112/78 98 Departure - Departure Time of Disposition: 15:04 Disposition: HOME SELF-CARE Discharge Problem: Neuropathy of both upper extremities Instructions: Peripheral Neuropathy (ED) Condition: Good Pt referred to PMD for follow-up: Yes IPMP verified?: No Additional Instructions: f/u with pcp and paIn management Allergies/Adverse Reactions: Allergies tramadol Adverse Reaction (Verified 08/07/18 14:47) seizures Home Medications: Ambulatory Orders Bacitracin 1 applic TP BEDTIME PRN 02/16/18 Ondansetron HCl [Zofran] 4 mg PO BID 04/19/18 Oxycodone HCl 5 mg PO TID 04/19/18 Diphenhydramine HCl [Benadryl] 50 mg PO DIRECTED PRN 05/17/18 Disposition Discussed With: Patient
== END 2018-08-07 15:50 | disposition home or self-care (01) ==
LOC: ED 14:43
DX: G62.9 Polyneuropathy, unspecified (principal); T22.00XS Burn of unspecified degree of shoulder and upper limb, except wrist and hand, unspecified site, sequela; F17.210 Nicotine dependence, cigarettes, uncomplicated
CPT/HCPCS: 96372; 99282

== ENCOUNTER 2018-09-02 13:33 | Outpatient (RCR) | END 2018-09-19 23:59 | PROVIDERS: ATTEND Internal Medicine | DX: Z98.890 Other specified postprocedural states (principal) ==

== ENCOUNTER 2018-12-05 18:09 | Emergency (ER) ==
[2018-12-05 18:13] VITALS: BP 104/71; TEMP 96.8; BMI 22.8
--- NOTE | 2018-12-05 18:23 | ED.PDOC ---
General ED Provider: Dr. GARY LEVI MD Chief Complaint: Eye Problem Stated Complaint: eye problem Time Seen by Physician: 18:15 Mode of Arrival: Walk-In Information Source: Patient Exam Limitations: No limitations Primary Care Provider: DARRELL COOLEY Nursing and Triage Documentation Reviewed and Agree: Yes Does patient meet sepsis criteria?: No If yes, has appropriate treatment been initiated?: Yes System Inflammatory Response Syndrome: Not Applicable Sepsis Protocol: For patient's 13 years and over: Temp is 96.8 and below OR 101 and greater Pulse >90 BPM Resp >20/minute Acutely Altered Mental Status Are patient's symptoms suggestive of a new infection, such as: -Pneumonia -Skin, Soft Tissue -Endocarditis -UTI -Bone, Joint Infection -Implantable Device -Acute Abdominal Infection -Wound Infection -Meningitis -Blood Stream Catheter Infection -Unknown Review of Systems - Review Of Systems Constitutional: Reports: No symptoms Eyes: Reports: No symptoms Ears, Nose, Mouth, Throat: Reports: No symptoms Respiratory: Reports: No symptoms Cardiac: Reports: No symptoms GI: Reports: No symptoms : Reports: No symptoms Musculoskeletal: Reports: No symptoms Skin: Reports: No symptoms Neurological: Reports: No symptoms Endocrine: Reports: No symptoms Hematologic/Lymphatic: Reports: No symptoms All Other Systems: Reviewed and Negative Past Medical History - Past Medical History Previously Healthy: Yes Endocrine: Reports: None Cardiovascular: Reports: None Respiratory: Reports: None Hematological: Reports: None Gastrointestinal: Reports: GERD Genitourinary: Reports: None Neuro/Psych: Reports: Anxiety, Bipolar Disorder Musculoskeletal: Reports: Arthritis, Back Pain (Kyphoscoliosis ) Cancer: Reports: None Last Menstrual Period: 2-3 weeks ago - Surgical History General Surgical History: Reports: Tubal ligation, Cholecystectomy - Family History Family History: Reports: None - Social History Smoking Status: Former smoker Hx Substance Use: No Alcohol Screening: None Physical Exam - Physical Exam Appearance: Well-appearing, Thin Ill-appearing: None Pain Distress: Mild Eyes: APARNA, EOMI, Conjunctiva inflammed ENT: Ears normal, Nose normal, Oropharynx normal Neck: Supple Respiratory: Airway patent Cardiovascular: RRR, Pulses normal, No rub, No murmur GI/: Soft, Nontender, No masses, Bowel sounds normal, No Organomegaly Musculoskeletal: Normal strength, ROM intact, No edema, No calf tenderness Skin: Warm, Dry, Normal color Neurological: Sensation intact, Motor intact, Reflexes intact, Cranial nerves intact, Alert, Oriented Psychiatric: Affect appropriate, Mood appropriate Critical Care Note - Critical Care Note Total Time (mins): 0 Course - Course Vital Signs: Temp Pulse Resp BP Pulse Ox 12/05/18 18:09 96.8 F L 87 18 104/71 95 Departure - Departure Time of Disposition: 18:37 Disposition: HOME SELF-CARE Discharge Problem: Acute conjunctivitis, bilateral Instructions: Conjunctivitis (ED) Condition: Good Pt referred to PMD for follow-up: Yes IPMP verified?: No Allergies/Adverse Reactions: Allergies hydrocodone Adverse Reaction (Verified 12/05/18 18:14) tramadol Adverse Reaction (Verified 12/05/18 18:14) seizures Home Medications: Ambulatory Orders Bacitracin 1 applic TP BEDTIME PRN 02/16/18 Ondansetron HCl [Zofran] 4 mg PO BID 04/19/18 Diphenhydramine HCl [Benadryl] 50 mg PO DIRECTED PRN 05/17/18
== END 2018-12-05 18:33 | disposition home or self-care (01) ==
LOC: ED 18:09
DX: H57.9 Unspecified disorder of eye and adnexa (principal); H10.33 Unspecified acute conjunctivitis, bilateral
CPT/HCPCS: 99282

== ENCOUNTER 2018-12-30 19:33 | Emergency (ER) ==
[2018-12-30 19:40] VITALS: BP 112/61; TEMP 96.3; BMI 23.1
[2018-12-30] MEDS ORDERED: PHENERGAN 25 MG/ML VIAL 25 MG in SODIUM CHLORIDE 50 ML IV STA (20:15)
[2018-12-30] MEDS ORDERED: DILAUDID 1 MG/ML SYRINGE IVP STA ×2 (20:15→22:20)
[2018-12-30] MEDS ORDERED: PHENERGAN 25 MG/ML VIAL ONE (20:25)
[2018-12-30] MEDS ORDERED: LACTATED RINGERS 1,000 ML IV STA (20:49)
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
== END 2018-12-30 23:25 | disposition home or self-care (01) ==
LOC: ED 19:33
DX: R11.2 Nausea with vomiting, unspecified (principal); R52 Pain, unspecified; G89.29 Other chronic pain; M54.2 Cervicalgia; F17.210 Nicotine dependence, cigarettes, uncomplicated
CPT/HCPCS: 36415; 80053; 81001; 82150; 83690; 85025; 96361; 96365; 96375; 96376; 99283

== ENCOUNTER 2019-01-01 19:48 | Emergency (ER) ==
[2019-01-01 20:05] VITALS: BP 94/65; TEMP 98.3; BMI 22.6
[2019-01-01] MEDS ORDERED: DILAUDID 1 MG/ML SYRINGE IM STA (20:16)
[2019-01-01] MEDS ORDERED: PHENERGAN 25 MG/ML VIAL IM STA (20:16)
[2019-01-01] MEDS ORDERED: ZOFRAN ODT PO STA (20:28)
[2019-01-01] MEDS ORDERED: ZOFRAN ODT ONE (20:28)
--- NOTE | 2019-01-01 20:29 | ED.PDOC ---
General ED Provider: Dr. MARTITA ZAYAS Chief Complaint: Non-specific Complaint Stated Complaint: Nausea and vomiting x 1 day. recently seen for the same. has an apt with PCP in the morning. Time Seen by Physician: 20:29 Mode of Arrival: Walk-In Information Source: Patient Primary Care Provider: DARRELL COOLEY Nursing and Triage Documentation Reviewed and Agree: Yes Does patient meet sepsis criteria?: No System Inflammatory Response Syndrome: Not Applicable Sepsis Protocol: For patient's 13 years and over: Temp is 96.8 and below OR 101 and greater Pulse >90 BPM Resp >20/minute Acutely Altered Mental Status Are patient's symptoms suggestive of a new infection, such as: -Pneumonia -Skin, Soft Tissue -Endocarditis -UTI -Bone, Joint Infection -Implantable Device -Acute Abdominal Infection -Wound Infection -Meningitis -Blood Stream Catheter Infection -Unknown Review of Systems - Review Of Systems Constitutional: Reports: No symptoms Eyes: Reports: No symptoms Ears, Nose, Mouth, Throat: Reports: No symptoms Respiratory: Reports: No symptoms Cardiac: Reports: No symptoms GI: Reports: Nausea, Vomiting : Reports: No symptoms Musculoskeletal: Reports: Back pain, Joint pain Skin: Reports: Other (scar tissue ) Neurological: Reports: Anxiety Endocrine: Reports: No symptoms Hematologic/Lymphatic: Reports: No symptoms All Other Systems: Reviewed and Negative Past Medical History - Past Medical History Previously Healthy: Yes Endocrine: Reports: None Cardiovascular: Reports: None Respiratory: Reports: None Hematological: Reports: None Gastrointestinal: Reports: GERD Genitourinary: Reports: None Neuro/Psych: Reports: Anxiety, Bipolar Disorder Musculoskeletal: Reports: Arthritis, Back Pain (Kyphoscoliosis ) Cancer: Reports: None Last Menstrual Period: 12/15/18 - Surgical History General Surgical History: Reports: Tubal ligation, Cholecystectomy - Family History Family History: Reports: None - Social History Smoking Status: Current every day smoker, Heavy tobacco smoker Hx Substance Use: Yes (marijuana) Alcohol Screening: None - Immunizations Tetanus Shot up to Date: Yes (unsure) Physical Exam - Physical Exam Appearance: Ill-appearing Ill-appearing: Moderate Pain Distress: Severe Eyes: APARNA, EOMI, Conjunctiva clear Neck: Supple Respiratory: Airway patent, Breath sounds clear, Breath sounds equal, Respirations nonlabored Cardiovascular: RRR, Pulses normal, No rub, No murmur GI/: Soft, Nontender, No masses, Bowel sounds normal, No Organomegaly Musculoskeletal: Normal strength, ROM intact, No edema, No calf tenderness Skin: Warm, Dry Neurological: Sensation intact, Alert Psychiatric: Affect appropriate, Mood appropriate Critical Care Note - Critical Care Note Total Time (mins): 0 Course - Course Orders, Labs, Meds: Orders Category Date Time Status Hydromorphone HCl [Dilaudid 1 mg/ml Syringe] MEDS 01/01/19 20:16 Discontinued 1 mg IM ONCE STA Ondansetron [Zofran Odt] MEDS 01/01/19 20:28 Discontinued 4 mg .ROUTE .STK-MED ONE Ondansetron [Zofran Odt] MEDS 01/01/19 20:28 Discontinued 4 mg PO ONCE STA Medications Discontinued Medications Generic Name Dose Route Start Last Admin Trade Name Freq PRN Reason Stop Dose Admin Hydromorphone HCl 1 mg 01/01/19 20:16 01/01/19 20:49 Dilaudid 1 Mg/Ml Syringe IM 01/01/19 20:17 1 mg ONCE STA Administration Ondansetron HCl 4 mg 01/01/19 20:28 01/01/19 20:31 Zofran Odt PO 01/01/19 20:29 4 mg ONCE STA Administration Vital Signs: Temp Pulse Resp BP Pulse Ox 01/01/19 19:51 98.3 F 80 18 94/65 99 Departure - Departure Time of Disposition: 21:20 Disposition: HOME SELF-CARE Discharge Problem: Nausea, Vomiting, Chronic pain disorder Instructions: Chronic Pain (ED), Acute Nausea and Vomiting (ED) Condition: Stable Pt referred to PMD for follow-up: Yes IPMP verified?: No Additional Instructions: Follow up with PCP this week take Medications as needed for nausea Prescriptions: Ondansetron [Zofran Odt] 4 mg PO Q8H #20 tab.rapdis Allergies/Adverse Reactions: Allergies hydrocodone Adverse Reaction (Verified 01/01/19 20:05) Itching tramadol Adverse Reaction (Verified 01/01/19 20:06) seizures Home Medications: Ambulatory Orders Bacitracin 1 applic TP BEDTIME PRN 02/16/18 Diphenhydramine HCl [Benadryl] 50 mg PO DIRECTED PRN 05/17/18 Ondansetron [Zofran Odt] 4 mg PO Q8H #20 tab.rapdis 01/01/19 Disposition Discussed With: Patient, Family
== END 2019-01-01 21:21 | disposition home or self-care (01) ==
LOC: ED 19:48
DX: R11.2 Nausea with vomiting, unspecified (principal); M54.9 Dorsalgia, unspecified; F41.9 Anxiety disorder, unspecified; M25.50 Pain in unspecified joint; G89.4 Chronic pain syndrome
CPT/HCPCS: 96372; 99282

== ENCOUNTER 2019-01-30 08:03 | Emergency (ER) ==
[2019-01-30 08:15] VITALS: BP 99/59; TEMP 100.3; BMI 22.4
[2019-01-30] MEDS ORDERED: ZOFRAN 4 MG/2 ML IM STA (08:21)
[2019-01-30 09:14] LABS: URINE PREGNANCY TEST NEGATIVE (NEGATIVE)
--- NOTE | 2019-01-30 09:54 | DI ---
EXAM: Chest two views HISTORY: Cough COMPARISON: 07/31/2010 TECHNIQUE: Two views of the chest were performed FINDINGS: Retrocardiac atelectasis and/or infiltrate seen on the lateral view. Atelectasis favored. There is no pleural effusion or pneumothorax. The heart is normal in size. The mediastinal contou r is normal. There are no acute abnormalities of the bones. IMPRESSION: Retrocardiac atelectasis and/or pneumonia seen on the lateral view. Atelectasis favored .
--- NOTE | 2019-01-30 10:04 | CT ---
EXAM: CT abdomen pelvis without contrast HISTORY: Nausea, pain COMPARISON: 09/07/2016 TECHNIQUE: CT abdomen pelvis performed without intravenous contrast. Coronal and sagittal reformatt ed images obtained. FINDINGS: Bibasilar subsegmental atelectasis, right greater than left. No free air. No acute abnor malities of the bones. Bilateral pars defects L5. No anterolisthesis. Small stable sclerotic focus left acetabulum, likely bone island. Heart normal in size. The evaluation organ parenchyma limited without contrast. Liver unremarkable. The. Patient status post cholecystectomy. Pancreas unremar kable. Spleen unremarkable. Adrenals unremarkable. No hydronephrosis or nephrolithiasis. No calcu li visualized in normal course of the ureters. Bladder only mildly distended and poorly evaluated, g rossly unremarkable. Uterus unremarkable. Aorta normal in caliber. No lymphadenopathy or ascites. Foci of air left gluteal region with mild surrounding stranding densities, likely related to injecti on of medicine. Stomach unremarkable. No dilated loops small bowel. Scattered fluid-filled loops s [place], may relate to enteritis. Appendix appears normal. Colon unremarkable. IMPRESSION: 1. Possible mild enteritis. Recommend clinical correlation. 2. Foci of air left gluteal region with mild surrounding stranding densities, likely related to inje ction of medicine. Recommend clinical correlation. 3. Bilateral pars defects L5. No anterolisthesis.
--- NOTE | 2019-01-30 10:11 | CT ---
EXAM: CT cervical spine without contrast HISTORY: Neck pain, no known injury, dizzy COMPARISON: None TECHNIQUE: CT cervical spine performed without intravenous contrast. Coronal and sagittal reformatt ed images obtained. FINDINGS: Vertebral bodies normal height. No fracture. No subluxation. Straightening of the matt l cervical lordosis. Intervertebral disc spaces maintained. Central canal grossly patent. Preverte bral soft tissues appear normal. Low-lying cerebellar tonsils. Mild to moderate mucosal thickening l eft maxillary sinus and minimal mucosal thickening right maxillary sinus. IMPRESSION: 1. No fracture or subluxation. 2. Straightening of the normal cervical lordosis. 3. Mild sinusitis. 4. Low-lying cerebellar tonsils.
--- NOTE | 2019-01-30 10:48 | ED.PDOC ---
General ED Provider: Dr. MILES PAGE Chief Complaint: Neck Pain Non-Injury Stated Complaint: neck pain Time Seen by Physician: 08:00 Mode of Arrival: Walk-In Information Source: Patient Exam Limitations: No limitations Primary Care Provider: DARRELL COOLEY Nursing and Triage Documentation Reviewed and Agree: Yes Does patient meet sepsis criteria?: No System Inflammatory Response Syndrome: Not Applicable Sepsis Protocol: For patient's 13 years and over: Temp is 96.8 and below OR 101 and greater Pulse >90 BPM Resp >20/minute Acutely Altered Mental Status Are patient's symptoms suggestive of a new infection, such as: -Pneumonia -Skin, Soft Tissue -Endocarditis -UTI -Bone, Joint Infection -Implantable Device -Acute Abdominal Infection -Wound Infection -Meningitis -Blood Stream Catheter Infection -Unknown Musculoskeletal Complaint Exam - Neck Pain Complaint/Exam Mechanism of Injury: Reports: No known trauma Onset/Duration: 2 days Symptoms Are: Still present Timing: Intermittent Episodes Lasting: Days Initial Severity: None Current Severity: None Character: Reports: Dull Aggravating: Reports: None Alleviating: Reports: None Associated Signs and Symptoms: Denies: Swelling, Redness, Bruising, Fever, Nuchal rigidity, Weakness, Headache, Paresthesia Related History: Reports: Similar episode Meningitis Risk Factors: Reports: None Cervical Spine Injury Risk Factors: Reports: None Related Surgical History: Reports: None Carotid Bruit Present: No Pain on Passive Flexion: No Positive Kernig's Sign: No ROM Limited In: Absent: Flexion, Extension, Right, Left, Side bending, Rotation Tenderness: Present: Paraspinal Focal Weakness: Present: None Focal Sensory Loss: Reports: None Nexus Low Risk Criteria: No post-midline CS tender, No evidence of intoxicat., No Altered LOC, No focal neuro deficit, No distracting injuries Differential Diagnoses: Sprain, Strain Review of Systems - Review Of Systems Constitutional: Reports: No symptoms Eyes: Reports: No symptoms Ears, Nose, Mouth, Throat: Reports: No symptoms Respiratory: Reports: No symptoms Cardiac: Reports: No symptoms GI: Reports: No symptoms : Reports: No symptoms Musculoskeletal: Reports: Neck pain Skin: Reports: No symptoms Neurological: Reports: No symptoms Endocrine: Reports: No symptoms Hematologic/Lymphatic: Reports: No symptoms All Other Systems: Reviewed and Negative Past Medical History - Past Medical History Previously Healthy: Yes Endocrine: Reports: None Cardiovascular: Reports: None Respiratory: Reports: None Hematological: Reports: None Gastrointestinal: Reports: GERD Genitourinary: Reports: None Neuro/Psych: Reports: Anxiety, Bipolar Disorder Musculoskeletal: Reports: Arthritis, Back Pain (Kyphoscoliosis ) Cancer: Reports: None Last Menstrual Period: 1 week - Surgical History General Surgical History: Reports: Tubal ligation, Cholecystectomy - Family History Family History: Reports: None - Social History Smoking Status: Current every day smoker Hx Substance Use: No Alcohol Screening: None - Immunizations Tetanus Shot up to Date: Yes Physical Exam - Physical Exam Appearance: Well-appearing, No pain distress, Well-nourished Eyes: APARNA, EOMI, Conjunctiva clear ENT: Ears normal, Nose normal, Oropharynx normal Respiratory: Airway patent, Breath sounds clear, Breath sounds equal, Respirations nonlabored Cardiovascular: RRR, Pulses normal, No rub, No murmur GI/: Soft, Nontender, No masses, Bowel sounds normal, No Organomegaly Musculoskeletal: Normal strength, ROM intact, No edema, No calf tenderness Skin: Warm, Dry, Normal color Neurological: Sensation intact, Motor intact, Reflexes intact, Cranial nerves intact, Alert, Oriented Psychiatric: Affect appropriate, Mood appropriate Interpretation - Radiology Interpretation Radiology Interpretation By: Radiologist Radiology Results: No acute changes Exam Interpreted: CT Scan Re-Evaluation - Re-Evaluation Time of Re-Evaluation: 09:00 (pt reported of a fall in the bath room , the head is nc/at no l.o.c reprted ) Status: Improved Vital Signs Stable: Yes Pain Level: 0 Appearance: NAD Lungs: Clear Skin: Warm and Dry Neuro: Alert and Oriented X3 CV: RRR Critical Care Note - Critical Care Note Total Time (mins): 0 Course - Course Hematology/Chemistry: 01/30/19 08:35 01/30/19 08:35 Orders, Labs, Meds: Lab Review 01/30/19 01/30/19 01/30/19 08:27 08:35 08:35 WBC 10.36 H RBC 4.48 Hgb 13.0 Hct 39.4 MCV 87.9 MCH 29.0 MCHC 33.0 RDW Coeff of Valerie 16.1 H Plt Count 286 Immature Gran % (Auto) 0.2 Neut % (Auto) 74.5 Lymph % (Auto) 17.5 Sebastian % (Auto) 6.4 Eos % (Auto) 1.0 Baso % (Auto) 0.4 Immature Gran # (Auto) 0.0 Neut # (Auto) 7.7 H Lymph # (Auto) 1.8 Sebastian # (Auto) 0.7 Eos # (Auto) 0.1 Baso # (Auto) 0.0 Sodium 137.9 Potassium 3.62 Chloride 99.3 Carbon Dioxide 29.1 Anion Gap 13.12 BUN 6.3 L Creatinine 0.55 L Estimated GFR (MDRD) 126.00 BUN/Creatinine Ratio 11.45 Glucose 84.1 Lactic Acid Calcium 9.36 Total Bilirubin 0.80 AST 32.7 ALT 25.4 Alkaline Phosphatase 137.7 H Total Protein 8.10 Albumin 4.70 Globulin 3.40 Albumin/Globulin Ratio 1.38 Procalcitonin Urine Color Urine Clarity Urine pH Ur Specific [place] Urine Protein Urine Glucose (UA) Urine Ketones Urine Blood Urine Nitrite Urine Bilirubin Urine Urobilinogen Ur Leukocyte Esterase Urine Microscopic RBC Urine Microscopic WBC Ur Squamous Epith Cells Urine Bacteria Urine Test Influ A Molecular Assay Negative by naat Influ B Molecular Assay Negative by naat 01/30/19 01/30/19 01/30/19 08:35 08:35 08:58 WBC RBC Hgb Hct MCV MCH MCHC RDW Coeff of Valerie Plt Count Immature Gran % (Auto) Neut % (Auto) Lymph % (Auto) Sebastian % (Auto) Eos % (Auto) Baso % (Auto) Immature Gran # (Auto) Neut # (Auto) Lymph # (Auto) Sebastian # (Auto) Eos # (Auto) Baso # (Auto) Sodium Potassium Chloride Carbon Dioxide Anion Gap BUN Creatinine Estimated GFR (MDRD) BUN/Creatinine Ratio Glucose Lactic Acid 0.95 Calcium Total Bilirubin AST ALT Alkaline Phosphatase Total Protein Albumin Globulin Albumin/Globulin Ratio Procalcitonin < 0.05 Urine Color Yellow Urine Clarity Cloudy Urine pH 6.5 Ur Specific [place] 1.020 Urine Protein Negative Urine Glucose (UA) Negative Urine Ketones Negative Urine Blood Trace-intact Urine Nitrite Negative Urine Bilirubin 1+ Urine Urobilinogen >=8.0 Ur Leukocyte Esterase 1+ Urine Microscopic RBC 2-5 Urine Microscopic WBC 2-5 Ur Squamous Epith Cells Tntc Urine Bacteria 1+ Urine Test Influ A Molecular Assay Influ B Molecular Assay 01/30/19 08:58 WBC RBC Hgb Hct MCV MCH MCHC RDW Coeff of Valerie Plt Count Immature Gran % (Auto) Neut % (Auto) Lymph % (Auto) Sebastian % (Auto) Eos % (Auto) Baso % (Auto) Immature Gran # (Auto) Neut # (Auto) Lymph # (Auto) Sebastian # (Auto) Eos # (Auto) Baso # (Auto) Sodium Potassium Chloride Carbon Dioxide Anion Gap BUN Creatinine Estimated GFR (MDRD) BUN/Creatinine Ratio Glucose Lactic Acid Calcium Total Bilirubin AST ALT Alkaline Phosphatase Total Protein Albumin Globulin Albumin/Globulin Ratio Procalcitonin Urine Color Urine Clarity Urine pH Ur Specific [place] Urine Protein Urine Glucose (UA) Urine Ketones Urine Blood Urine Nitrite Urine Bilirubin Urine Urobilinogen Ur Leukocyte Esterase Urine Microscopic RBC Urine Microscopic WBC Ur Squamous Epith Cells Urine Bacteria Urine Test Negative Influ A Molecular Assay Influ B Molecular Assay Orders Category Date Time Status BLOOD CULTURE Stat LAB 01/30/19 08:57 Received CBC W/ AUTO DIFF Stat LAB 01/30/19 08:35 Completed COMPREHENSIVE METABOLIC PANEL Stat LAB 01/30/19 08:35 Completed FLU A/B MOLECULAR Stat LAB 01/30/19 08:27 Completed LACTIC ACID Stat LAB 01/30/19 08:35 Completed MOLECULAR GROUP A STREP Stat LAB 01/30/19 08:27 Completed PROCALCITONIN Stat LAB 01/30/19 08:35 Completed URINALYSIS C & S IF INDICATED Stat LAB 01/30/19 08:58 Completed URINE CULTURE Stat LAB 01/30/19 08:50 Received URINE Stat LAB 01/30/19 08:58 Completed Ondansetron HCl/Pf [Zofran 4 mg/2 ml] MEDS 01/30/19 08:21 Discontinued 4 mg IM ONCE STA CHEST, 2 VIEWS PA & LAT Stat RADS 01/30/19 08:[address] ABDOMEN/PELVIS WO CONTRAST Stat RADS 01/30/19 08:[address] CERVICAL SPINE W/O CONTRAST Stat RADS 01/30/19 08:20 Completed Medications Discontinued Medications Generic Name Dose Route Start Last Admin Trade Name Freq PRN Reason Stop Dose Admin Ondansetron HCl 4 mg 01/30/19 08:21 01/30/19 09:01 Zofran 4 Mg/2 Ml IM 01/30/19 08:22 4 mg ONCE STA Administration Vital Signs: Temp Pulse Resp BP Pulse Ox 01/30/19 08:03 100.3 F H 116 H 20 99/59 L 94 L Departure - Departure Time of Disposition: 10:48 Disposition: HOME SELF-CARE Discharge Problem: Neck pain Fever Qualifiers: Fever type: unspecified Qualified Code(s): R50.9 - Fever, unspecified Sinusitis Qualifiers: Sinusitis location: unspecified location Chronicity: unspecified Qualified Code (s): J32.9 - Chronic sinusitis, unspecified Instructions: Cervical Strain (ED), Sinusitis (ED), Rhinosinusitis (ED) Condition: Good Pt referred to PMD for follow-up: Yes IPMP verified?: No Additional Instructions: Please call your Family Physician as soon as possible to schedule a follow-up appointment. Prescriptions: Amoxicillin 500 mg PO Q8HR #30 tablet Allergies/Adverse Reactions: Allergies chlorhexidine Adverse Reaction (Verified 01/30/19 09:27) hydrocodone Adverse Reaction (Verified 01/30/19 09:20) Itching tramadol Adverse Reaction (Verified 01/30/19 09:20) seizures Home Medications: Ambulatory Orders Bacitracin 1 applic TP BEDTIME PRN 02/16/18 Diphenhydramine HCl [Benadryl] 50 mg PO DIRECTED PRN 05/17/18 Ondansetron [Zofran Odt] 4 mg PO Q8H #20 tab.rapdis 01/01/19 Amoxicillin 500 mg PO Q8HR #30 tablet 01/30/19 Ketorolac Tromethamine [Toradol] 10 mg PO Q6HR PRN 01/30/19
== END 2019-01-30 10:58 | disposition home or self-care (01) ==
LOC: ED 08:03
DX: M54.2 Cervicalgia (principal); R50.9 Fever, unspecified; J32.9 Chronic sinusitis, unspecified; F17.210 Nicotine dependence, cigarettes, uncomplicated; W19.XXXA Unspecified fall, initial encounter
CPT/HCPCS: 36415; 80053; 81001; 81025; 83605; 84145; 85025; 87040; 87086; 87502; 87651; 96372; 99283

== ENCOUNTER 2019-02-28 17:04 | Emergency (ER) | payer OTHER ==
[2019-02-28 17:15] VITALS: BP 114/79; TEMP 98.2; BMI 22.6
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
[2019-02-28] MEDS ORDERED: DUONEB NEB STA (18:30)
--- NOTE | 2019-02-28 19:03 | DI ---
EXAM: One-view chest HISTORY: Dyspnea TECHNIQUE: Single frontal view the chest was obtained. Comparison 01/30/2019. FINDINGS: The heart is normal size. Lungs are clear. The pulmonary vasculature appears normal. Th e costophrenic angles are sharp. The osseous structures and mediastinal contours are normal. IMPRESSION: No active cardiopulmonary disease.
== END 2019-02-28 19:25 | disposition home or self-care (01) ==
LOC: ED 17:04
DX: J45.909 Unspecified asthma, uncomplicated (principal); F17.210 Nicotine dependence, cigarettes, uncomplicated
CPT/HCPCS: 36415; 80053; 85025; 93005; 93010; 94640; 99283

== ENCOUNTER 2019-04-07 19:11 | Emergency (ER) ==
[2019-04-07 19:26] VITALS: BP 118/79; TEMP 99.8; BMI 21.4
--- NOTE | 2019-04-07 19:55 | ED.PDOC ---
General ED Provider: Dr. GARY CAPUTO-ER Chief Complaint: Non-specific Complaint Stated Complaint: michael got a migraine and i feel my right cheek is swollen Time Seen by Physician: 19:30 Mode of Arrival: Walk-In Information Source: Patient Exam Limitations: No limitations Primary Care Provider: DARRELL COOLEY Nursing and Triage Documentation Reviewed and Agree: Yes Does patient meet sepsis criteria?: No System Inflammatory Response Syndrome: Not Applicable Sepsis Protocol: For patient's 13 years and over: Temp is 96.8 and below OR 101 and greater Pulse >90 BPM Resp >20/minute Acutely Altered Mental Status Are patient's symptoms suggestive of a new infection, such as: -Pneumonia -Skin, Soft Tissue -Endocarditis -UTI -Bone, Joint Infection -Implantable Device -Acute Abdominal Infection -Wound Infection -Meningitis -Blood Stream Catheter Infection -Unknown Neurological Complaint Exam - Headache Complaint/Exam Onset: Gradual Duration: 3 days Symptoms Are: Still present Timing: Constant Worst Headache Ever: No Initial Severity: Mild Current Severity: Moderate Location: Left, Frontal, Temporal, Parietal Character: Reports: Dull, Throbbing, Typical headache, Migraine Aggravating: Reports: Bright lights Associated Signs and Symptoms: Denies: Dizziness, Seizure, Nausea, Vomiting, Sinus pressure, Fever, Neck pain, Neck stiffness, Decreased LOC, Visual changes Related History: Denies: Recent trauma, Remote trauma Temporal Arteritis Risk Factors: Reports: Female, Normal Head CT Within Last 12 Months: No Fundoscopic Exam: Present: Normal Findings Papilledema Present: No Temporal Artery Tenderness: Present: None Sinus Tenderness: Present: None TMJ Tenderness: Present: None Glascow Coma Scale (see protocol): 15 Meningeal Signs Positive: No Pain on Passive Flexion-Positive Kernig's: No ROM Limited In: No Limitiations Focal Weakness: Present: None Focal Sensory Loss: Present: None Gait: Normal Nystagmus Present: No Gag Reflex Present: No Eetfni-fa-Cwas: Normal Findings Romberg Test Positive: No Babinski Sign: Negative Right, Negative Left Heel to Toe Normal: No Differential Diagnoses: Migraine Review of Systems - Review Of Systems Constitutional: Reports: No symptoms Eyes: Reports: No symptoms Ears, Nose, Mouth, Throat: Reports: No symptoms Respiratory: Reports: No symptoms Cardiac: Reports: No symptoms GI: Reports: No symptoms : Reports: No symptoms Musculoskeletal: Reports: No symptoms Skin: Reports: No symptoms Neurological: Reports: Headache Endocrine: Reports: No symptoms Hematologic/Lymphatic: Reports: No symptoms All Other Systems: Reviewed and Negative Past Medical History - Past Medical History Previously Healthy: Yes Endocrine: Reports: None Cardiovascular: Reports: None Respiratory: Reports: None Hematological: Reports: None Gastrointestinal: Reports: GERD Genitourinary: Reports: None Neuro/Psych: Reports: Anxiety, Bipolar Disorder Musculoskeletal: Reports: Arthritis, Back Pain (Kyphoscoliosis ) Cancer: Reports: None Last Menstrual Period: yesterday - Surgical History General Surgical History: Reports: Tubal ligation, Cholecystectomy - Family History Family History: Reports: None - Social History Smoking Status: Current every day smoker, Light tobacco smoker Hx Substance Use: No Alcohol Screening: None - Immunizations Tetanus Shot up to Date: Yes Physical Exam - Physical Exam Appearance: Well-appearing, No pain distress, Well-nourished Pain Distress: Mild Eyes: APARNA, EOMI, Conjunctiva clear ENT: Ears normal, Nose normal, Oropharynx normal Neck: Supple Respiratory: Airway patent, Breath sounds clear, Breath sounds equal, Respirations nonlabored Cardiovascular: RRR, Pulses normal, No rub, No murmur GI/: Soft, Nontender, No masses, Bowel sounds normal, No Organomegaly Musculoskeletal: Normal strength, ROM intact, No edema, No calf tenderness Skin: Warm, Dry, Normal color Neurological: Sensation intact, Motor intact, Reflexes intact, Cranial nerves intact, Alert, Oriented Psychiatric: Affect appropriate, Mood appropriate Interpretation - Radiology Interpretation Radiology Interpretation By: Radiologist Radiology Results: Positive Exam Interpreted: CT Scan Critical Care Note - Critical Care Note Total Time (mins): 0 Course - Course Orders, Labs, Meds: Orders Category Date Time Status CT MAXILLOFACIAL W/O CONTRAST Stat RADS 04/07/19 19:28 Completed Vital Signs: Temp Pulse Resp BP Pulse Ox 04/07/19 19:20 99.8 F H 102 H 20 118/79 98 Departure - Departure Time of Disposition: 20:27 Disposition: HOME SELF-CARE Discharge Problem: Sinusitis Qualifiers: Sinusitis location: unspecified location Chronicity: acute Recurrence: non- recurrent Qualified Code(s): J01.90 - Acute sinusitis, unspecified Migraine headache Qualifiers: Migraine type: unspecified Status migrainosus presence: without status migrainosus Intractability: not intractable Qualified Code(s): G43.909 - Migraine, unspecified, not intractable, without status migrainosus Instructions: Rhinosinusitis (ED) Condition: Good Pt referred to PMD for follow-up: Yes IPMP verified?: No Additional Instructions: f/u with pcp Allergies/Adverse Reactions: Allergies chlorhexidine Adverse Reaction (Verified 02/28/19 17:15) hydrocodone Adverse Reaction (Verified 02/28/19 17:15) Itching tramadol Adverse Reaction (Verified 02/28/19 17:15) seizures Home Medications: Ambulatory Orders Diphenhydramine HCl [Benadryl] 50 mg PO DIRECTED PRN 05/17/18 Ondansetron [Zofran Odt] 4 mg PO Q8H #20 tab.rapdis 01/01/19 Disposition Discussed With: Patient
--- NOTE | 2019-04-07 20:24 | CT ---
Exam: CT maxillofacial without contrast History: Facial swelling Technique: [address] maxillofacial with multiplanar reformations FINDINGS: Circumferential mucosal thickening in the right maxillary sinus. The paranasal sinuses ar e clear otherwise. The orbits and globes appear normal. No bony abnormalities are seen. No facial swelling or inflammation by CT. The parotid glands appear normal and symmetric. The submandibular g lands are incompletely visualized but the visualized portions appear normal. Impression: 1. Right maxillary sinus mucoperiosteal disease. Negative exam otherwise.
[2019-04-07] MEDS ORDERED: AUGMENTIN 875-125 MG TAB PO STA (20:26)
[2019-04-07] MEDS ORDERED: PERCOCET 7.5-325 PO STA (20:27)
== END 2019-04-07 20:51 | disposition home or self-care (01) ==
LOC: ED 19:11
DX: J01.90 Acute sinusitis, unspecified (principal); G43.909 Migraine, unspecified, not intractable, without status migrainosus; F17.210 Nicotine dependence, cigarettes, uncomplicated
CPT/HCPCS: 99282